=== PATIENT | female | born 1955 | race Asian ===

== ENCOUNTER 2018-05-05 10:08 | Emergency (ER) | payer MEDICAID ==
[~2018-05-05] VITALS: Ht 167.6 cm; Wt 84.8 kg
[2018-05-05 11:20] LABS: Urine Bacteria NONE SEEN /hpf (None Seen); Urine Blood Negative /uL (Negative); Urine Hyaline Cast FEW /lpf (0 - 2); Urine Mucus FEW (None Seen); Urine Specific Gravity 1.017 (1.001-1.035); Urine WBC 2 /hpf (0 - 5)
[2018-05-05] MEDS ORDERED: ONDANSETRON ODT 4 MG TAB PO ONE (12:15)
[2018-05-05] MEDS ORDERED: KETOROLAC TROMETH 60MG/2ML VIAL IM ONE (12:15)
[2018-05-05 12:54] VITALS: BP 132/78
== END 2018-05-05 13:06 | disposition home or self-care (01) ==
LOC: ER 10:08
DX: M54.42 Lumbago with sciatica, left side (principal); E78.5 Hyperlipidemia, unspecified; I10 Essential (primary) hypertension
CPT/HCPCS: 81001; 93005; 96372; 99285; J1885; Q0162

== ENCOUNTER 2023-07-17 11:27 | Inpatient (IN) | payer MEDICAID ==
[~2023-07-17] VITALS: Ht 165.1 cm; Wt 84.0 kg
[2023-07-17 11:51] LABS: Eosinophils # (auto) 0.2 10 ^3/uL (0-0.8); Lymphocytes # (auto) 2.3 10 ^3/uL (0.4-5.4); Monocytes # (auto) 0.5 10 ^3/uL (0-1.3)
[2023-07-17 11:54] LABS: Basophils # (auto) 0 10 ^3/uL (0-0.2); Basophils % (auto) 0.6 % (0.0-2.0); Eosinophils % (auto) 2.8 % (0.0-7.0); Hematocrit 34.7 % (36.0-46.0); Lymphocytes % (auto) 32.2 % (10.0-50.0); Mean Corpuscular Hemoglobin 18.1 pg (28.0-32.0); Mean Corpuscular Hgb Conc. 31.8 g/dL (32.0-36.0); Mean Corpuscular Volume 56.8 fL (80.0-100.0); Monocytes % (auto) 7.4 % (0.0-12.0); Neutrophils # (auto) 4.1 10 ^3/uL (1.6-8.6); Nucleated Red Blood Cells % 0.2 %; Red Cell Distribution Width 18.2 % (11.8-14.3); White Blood Cell 7.2 10^3/uL (4.4-10.8)
[2023-07-17 11:59] LABS: Urine Bacteria FEW /hpf (None Seen); Urine Blood Negative /uL (Negative); Urine Clarity Clear (Clear); Urine Color Yellow (Yellow); Urine Hyaline Cast FEW /lpf (0 - 2); Urine Mucus FEW (None Seen); Urine Protein, UAD TRACE (Negative); Urine Specific Gravity 1.019 (1.001-1.035); Urine Urobilinogen Normal (Negative); Urine WBC 3 /hpf (0 - 5)
[2023-07-17 12:10] LABS: INR 1.01 (0.9-1.15); Prothrombin Time 10.6 sec (9.3-11.8)
[2023-07-17 12:25] LABS: Alanine Aminotransferase 19 U/L (7-40); Albumin 4.3 g/dL (3.2-4.8); Alkaline Phosphatase 77 U/L (46-116); Anion Gap 7 (5-15); Aspartate Aminotransferase 18 U/L (13-40); BUN/Creatinine Ratio 14.7 (10.0-20.0); Blood Urea Nitrogen 10 mg/dL (9-23); Calcium 9.3 mg/dL (8.5-10.1); Carbon Dioxide 28 mmol/L (20-30); Chloride 106 mmol/L (98-107); Glucose 107 mg/dL (74-106); Potassium 3.5 mmol/L (3.5-5.1); Sodium 141 mmol/L (136-145)
[2023-07-17 12:26] LABS: Bilirubin, Total 0.7 mg/dL (0.2-1.0); Total Protein 6.9 g/dL (5.7-8.2)
[2023-07-17] MEDS ORDERED: ATOR20TA50 PO (14:26)
[2023-07-17] MEDS ORDERED: BECL80AE11 INH (14:26)
[2023-07-17] MEDS ORDERED: ALBU108A5 PO (14:26)
[2023-07-17] MEDS ORDERED: GAB100C PO (14:26)
[2023-07-17] MEDS ORDERED: DIPH25TA31 PO (14:26)
[2023-07-17] MEDS ORDERED: HYDR25TA5 PO (14:26)
[2023-07-17] MEDS ORDERED: ASPirin 325 MG TAB PO ONE (14:30)
[2023-07-17] MEDS ORDERED: SODIUM CHLORIDE 0.9% 1,000 ML IV SCH (14:30)
[2023-07-17] MEDS ORDERED: NITROGLYCERIN 0.4 MG SL TAB SL PRN (14:30)
[2023-07-17] MEDS ORDERED: ACETAMINOPHEN 325 MG TAB PO PRN (14:30)
[2023-07-17] MEDS ORDERED: MORPHINE SULFATE INJ 2 MG/ml SYRG IV PRN (14:30)
[2023-07-17 14:34] LABS: Triglycerides 109 mg/dL (< 150)
[2023-07-17 14:35] LABS: LDL Cholesterol 88 mg/dL (< 100)
[2023-07-17 14:36] LABS: Cholesterol 141 mg/dL (< 200); HDL Cholesterol 36 mg/dL (40-59)
[2023-07-17] MEDS ORDERED: ATORVASTATIN 20 MG TAB PO SCH (18:00)
[2023-07-17 20:00] VITALS: BP 138/65; PULSE 61; RESP 16; TEMP 97.7; O2SAT 95
[2023-07-18] MEDS ORDERED: HCTZ 25 MG TAB PO SCH (10:00)
[2023-07-18] MEDS ORDERED: ENOXAPARIN SOD 40 MG/0.4 ML SYRINGE SC SCH (10:00)
[2023-07-18] MEDS ORDERED: ASPirin 81 mg TAB PO SCH (10:00)
== END 2023-07-17 23:48 | disposition left against medical advice (07) | DRG 207 ==
LOC: ER 11:27 → TELE 14:26
PROVIDERS: ADMIT Nurse Practitioner Family; ATTEND Nurse Practitioner Family
DX: R00.2 Palpitations (principal); E66.01 Morbid (severe) obesity due to excess calories; R06.02 Shortness of breath; I10 Essential (primary) hypertension; Z90.710 Acquired absence of both cervix and uterus; Z53.21 Procedure and treatment not carried out due to patient leaving prior to being seen by health care provider; R53.1 Weakness; I49.9 Cardiac arrhythmia, unspecified; Z90.49 Acquired absence of other specified parts of digestive tract; Z68.30 Body mass index [BMI] 30.0-30.9, adult
CPT/HCPCS: 36415; 71045; 80053; 80061; 81001; 83036; 83735; 84443; 84484; 85025; 85379; 85610; 85730; 93005; G0378